=== PATIENT | female | born 1940 | race Caucasian/White ===

== ENCOUNTER 2019-10-12 21:36 | Emergency (ER) | payer MEDICARE ==
[~2019-10-12] VITALS: Ht 157.5 cm; Wt 66.0 kg
[~2019-10-12 21:36] MED LIST: ASPI81 PO; CALC-789 PO; LEVO50 PO; MELO-107 PO; SIMV-261 PO; VITAD5000 PO
[2019-10-12] MEDS ORDERED: AZIT250T9 PO (21:46)
[2019-10-12] MEDS ORDERED: BENZ-51 PO (21:46)
[2019-10-12 21:49] VITALS: BP 132/77
== END 2019-10-13 03:58 | disposition left against medical advice (07) ==
LOC: EMS 21:39
DX: R05 Cough (principal); Z53.21 Procedure and treatment not carried out due to patient leaving prior to being seen by health care provider